=== PATIENT | female | born 1960 | race Caucasian/White ===

== ENCOUNTER → 2024-05-22 15:25 | Outpatient (REF) | payer BC, SELFPAY | LOC: RAD 15:25 | PROVIDERS: ATTENDING PHYSICIAN Nurse Practitioner Family | DX: M79.671 Pain in right foot (principal) | CPT/HCPCS: 73630 ==

== ENCOUNTER → 2024-06-15 15:16 | Outpatient (REF) | payer BC, SELFPAY | LOC: WDC 15:16 | PROVIDERS: ATTENDING PHYSICIAN Internal Medicine | DX: Z12.31 Encounter for screening mammogram for malignant neoplasm of breast (principal) | CPT/HCPCS: 77063; 77067 ==

== ENCOUNTER → 2025-06-20 08:27 | Outpatient (REF) | payer BC, SELFPAY | LOC: WDC 08:27 | PROVIDERS: ATTENDING PHYSICIAN Internal Medicine | DX: Z12.31 Encounter for screening mammogram for malignant neoplasm of breast (principal) | CPT/HCPCS: 77063; 77067 ==

== ENCOUNTER → 2025-07-31 11:34 | Outpatient (REF) | payer BC, SELFPAY | LOC: RAD 11:34 | PROVIDERS: ATTENDING PHYSICIAN Internal Medicine | DX: M79.604 Pain in right leg (principal); M79.605 Pain in left leg | CPT/HCPCS: 73552 ==

== ENCOUNTER 2025-11-16 14:08 | Inpatient (IN) | payer BC, SELFPAY ==
[2025-11-16 10:25] VITALS: BP 151/89
--- NOTE | 2025-11-16 10:31 | ED.GENMED ---
History of Present Illness
<Derrick Barnes PA-C - Last Filed: 11/16/25 12:00>
General
Chief Complaint: Musculo-Skeletal Complaint
Source: patient
Time Seen by Provider: 11/16/25 10:21
History of Present Illness
History of Present Illness:
64-year-old female with past medical history of hyperlipidemia and osteopenia presenting to the emergency department for evaluation after she was at the [employer] where she works at and accidentally slipped down a step injuring her right leg, obvious
deformity noted and inability to ambulate. At rest patient states her pain is about a 5 out of 10 discomfort but sharp and severe with any attempted movements. She notes a history of a fractured ankle to the same extremity years ago but no
complications. Denies any head strike, no anticoagulants use. Patient did receive a total of 100 mcg of f[address]anyl on the way to the hospital. No other concerns.
Past History
<Derrick Barnes PA-C - Last Filed: 11/16/25 12:00>
Past History
ED Past Medical History: Hypercholesterolemia and Other (Osteopenia )
ED Past Surgical History: Cholecystectomy and Orthopedic (Right elbow)
Social History
Tobacco: Non-smoker
Alcohol: None
Drug: None
Personal:
Living: with family
Review of Systems
<Derrick Barnes PA-C - Last Filed: 11/16/25 12:00>
Review of Systems
All Other Systems: ROS reviewed and negative except as documented in HPI and ROS
Phy Exam
<Derrick Barnes PA-C - Last Filed: 11/16/25 12:00>
Physical Exam
Physical Exam:
GENERAL: Alert , in no apparent distress but appears mildly uncomfortable at rest but with significant discomfort on any attempted movements
HEAD: Normocephalic atraumatic
EYE: conjunctiva clear
NECK: Supple
ENT: o/p clr, mmm.
CARDIAC: Regular rate and rhythm
LUNGS: Clear breath sounds bilaterally, no acute respiratory distress, no wheezes/rales/rhonchi
NEUROLOGICAL: Alert and oriented
SKIN: Warm and dry, skin intact.
MUSCULOSKELETAL: Right leg is shortened and internally rotated. She is able to range of motion foot and ankle without difficulty. Easily palpable pedal pulses. Cap refill less than 2 seconds. Sensation grossly intact to light touch
PSYCH: Normal and appropriate interaction.
Scores
<Derrick Barnes PA-C - Last Filed: 11/16/25 12:00>
Heart Failure Risk
Heart Failure Risk Score: Not Applicable
Heart Score for Chest Pain Patients
STEMI patient?: Not applicable
Withdrawal Assessment of Alcohol
Withdrawal Assessment Completed?: Not applicable
Course
<Derrick Barnes PA-C - Last Filed: 11/16/25 12:00>
Orders/Labs/Results
Orders:
Orders
11/16/25 10:27
HYDROmorphone [Dilaudid] 0.5 mg IV NOW STA
CR Femur - Right Min 2 Vw Urgent
Comment:
Reason For Exam: fall, deformity
CR Pelvis - 1 Or 2 Views Urgent
Reason For Exam: fall, deformity
11/16/25 10:30
Basic Metabolic Panel Urgent
Complete Blood Count/With Diff Urgent
PTT Urgent
Prothrombin Time Urgent
11/16/25 11:38
ORTHOPEDIC CONSULT Urgent
Consulting Provider: Darryn Vidal
Was physician already notified: Yes
11/16/25 11:47
Type+Screen Routine
11/17/25 Breakfast
NPO
Allow oral meds: Yes
Allow clear liquids: Sips of Clears
11/17/25 07:30
CeFAZolin 2 GRAM [Ancef] 2 grams in 10 ml IV PRE PROCEDURE
Povidone Iodine 10% Solution [Povidone Iodine 10%] 114 ml 0.9% Sod Chloride 3000 ml Irr [Nss Irrigation Bag] 3,000 ml IRRIG OR
Tranexamic Acid 3,000 mg 0.9% Sodium Chloride 250 ml [Nss] 250 ml IRRIG OR
Abnormal Lab Results
11/16/25
10:30
MPV 11.3 H fL
(7.4-10.4)
Absolute Monos (auto) 0.7 H 10^3/uL
(0.1-0.6)
Monocytes % 9.6 H %
(1.7-9.3)
BUN 18 H mg/dl
(7-17)
Glucose 131 H mg/dl
(70-99)
11/16/25 10:30
11/16/25 10:30
Vital Signs
Initial and Last Documented VS:
Initial Vital Signs
Temp Pulse Resp BP Pulse Ox
97.7 F 73 16 151/89 151
11/16/25 10:25 11/16/25 10:25 11/16/25 10:25 11/16/25 10:25 11/16/25 10:25
Last Documented Vital Signs
Temp Pulse Resp BP Pulse Ox
97.7 F 73 16 151/89 151
11/16/25 10:25 11/16/25 10:25 11/16/25 10:25 11/16/25 10:25 11/16/25 10:38
<Chad Landaverde, DO - Last Filed: 11/16/25 10:50>
Orders/Labs/Results
Orders:
Orders
11/16/25 10:27
HYDROmorphone [Dilaudid] 0.5 mg IV NOW STA
CR Femur - Right Min 2 Vw Urgent
Comment:
Reason For Exam: fall, deformity
CR Pelvis - 1 Or 2 Views Urgent
Reason For Exam: fall, deformity
11/16/25 10:30
Basic Metabolic Panel Urgent
Complete Blood Count/With Diff Urgent
PTT Urgent
Prothrombin Time Urgent
11/16/25 11:38
ORTHOPEDIC CONSULT Urgent
Consulting Provider: Darryn Vidal
Was physician already notified: Yes
11/16/25 11:47
Type+Screen Routine
11/17/25 Breakfast
NPO
Allow oral meds: Yes
Allow clear liquids: Sips of Clears
11/17/25 07:30
CeFAZolin 2 GRAM [Ancef] 2 grams in 10 ml IV PRE PROCEDURE
Povidone Iodine 10% Solution [Povidone Iodine 10%] 114 ml 0.9% Sod Chloride 3000 ml Irr [Nss Irrigation Bag] 3,000 ml IRRIG OR
Tranexamic Acid 3,000 mg 0.9% Sodium Chloride 250 ml [Nss] 250 ml IRRIG OR
Abnormal Lab Results
11/16/25
10:30
MPV 11.3 H fL
(7.4-10.4)
Absolute Monos (auto) 0.7 H 10^3/uL
(0.1-0.6)
Monocytes % 9.6 H %
(1.7-9.3)
BUN 18 H mg/dl
(7-17)
Glucose 131 H mg/dl
(70-99)
11/16/25 10:30
11/16/25 10:30
Vital Signs
Initial and Last Documented VS:
Initial Vital Signs
Temp Pulse Resp BP Pulse Ox
97.7 F 73 16 151/89 151
11/16/25 10:25 11/16/25 10:25 11/16/25 10:25 11/16/25 10:25 11/16/25 10:25
Last Documented Vital Signs
Temp Pulse Resp BP Pulse Ox
97.7 F 73 16 151/89 151
11/16/25 10:25 11/16/25 10:25 11/16/25 10:25 11/16/25 10:25 11/16/25 10:38
<Derrick Barnes PA-C - Last Filed: 11/16/25 12:00>
MDM/Problems Addressed
Differential Diagnosis Includes:
Femur Fracture
Hip fracture
Pelvic fracture
Dislocation
MDM/Problems Addressed:
64-year-old female presenting to the ER for evaluation following an accidental fall resulting in right hip/femur injury. Will order Dilaudid for further pain control. X-rays ordered. Will notify orthopedics as patient will need surgical repair
<Derrick Barnes PA-C - Last Filed: 11/16/25 12:00>
*Radiology
Radiology exam reviewed: preliminary read by ED provider (Comminuted midshaft right femur fracture)
*Pulse Oximetry
SaO2: 151
Oxygen Mode of Delivery: Room air
Patient hypoxic: no
*Critical Care Note
Total Time (30-74mins, 75-104mins- exclusive of procedures): Not Applicable
<Derrick Barnes PA-C - Last Filed: 11/16/25 12:00>
Patient Management
Discussion with other providers: Hospitalist and Skip Tender
Escalation/DeEscalation of care consider admission/obs:
XR with significant comminuted mid shaft femur fracture. Notified television engineer Dr. Young caceres and hospitalist team who will admit. Plan to go to OR tomorrow AM.
ED Attending Note
<Derrick Barnes PA-C - Last Filed: 11/16/25 12:00>
-
Portions of this chart may have been created with voice recognition software.� Occasional wrong word or��sound alike� substitutions may have occurred due to the inherent limitations of voice recognition software.
<Chad Landaverde DO - Last Filed: 11/16/25 10:50>
ED Attending Note
Patient seen and examined by attending physician: Yes
ED Attending Note:
I reviewed and agree with history treatment plan by Harry Barnes PA-C. My exam revealed 64-year-old female no acute distress, mid femur swelling and tenderness right leg. No other signs of trauma. Suspect midshaft femur fracture, will admit for
surgical repair.
Discharge Plan
Departure
Patient Disposition: Admit
Date of Disposition: 11/16/25
Time of Disposition: 10:54
Presentation/result/management discussed w/ accepting MD/DO: Hospitalist
Discharge Problem:
Fracture of right femur
Prescriptions:
No Action
atorvastatin 20 mg Tablet
20 mg PO QPM
Theragen Tablet
1 tab PO DAILY
calcium carbonate-vitamin D3 [Calcium + D] 600 mg-5 mcg (200 unit) Tablet
1 tab PO DAILY
Prolia 60 mg/mL Syringe
60 mg SC [id number]
Discharge Date and Time
Print Language: YAKUT
[2025-11-16] MEDS: DILAUDID 0.5 MG IV ×3 (10:34→19:46)
[2025-11-16 10:52] LABS: Hematocrit 42.2 % (37.0-47.0); Hemoglobin 14.6 g/dL (12.0-16.0); Mean Corp Hgb Conc. 34.6 g/dL (33.0-37.0); Mean Corpuscular Volume 84.6 fL (81.0-99.0); Nucleated Red Blood Cells % 0 %; Platelet Count 236 10^3/uL (130-400); Red Cell Dist. Width 12.7 % (11.5-14.5)
[2025-11-16 10:57] LABS: INR 0.99; PT 13.2 Sec (11.4-14.6)
[2025-11-16 10:58] LABS: APTT 25.8 Sec (23.4-35.0)
[2025-11-16 10:59] LABS: Blood Urea Nitrogen 18 mg/dl (7-17); Calcium 9.3 mg/dl (8.4-10.2); Carbon Dioxide 24 mmol/L (22-30); Chloride 104 mmol/L (98-107); Glucose 131 mg/dl (70-99); Potassium 4.0 mmol/L (3.5-5.1); Sodium 137 mmol/L (135-145); eGFR > 60.00
[2025-11-16 13:06] VITALS: BP 163/86
--- NOTE | 2025-11-16 13:37 | HPS.HSE ---
Family Physician
-
Family Physician: Dannielle Farias
Chief Complaint
-
Fall
History of Present Illness
64 y/o F past medical history of hyperlipidemia and osteopenia presents to ER after fall at [employer] where she works at. She reports accidentally slipping down a step, injuring her R Leg which she noted an obvious deformity and she was unable to
ambulate. She reports mid RLE thigh pain, 5/10, sharp. Movement made pain worse. No head trauma or LOC. No prior symptoms.
Medical History
Past Medical History
Past Medical History: Reports Other (hyperlipidemia and osteopenia )
Past Surgical History: Reports Other (Cholecystectomy and Orthopedic (Right elbow))
Social History
Tobacco: Non-smoker
Alcohol: None
Drug: None
Personal:
Living: With Family
Family History
Family History: Not pertinent
Allergies / Home Medications
Allergies reflects when Allergies were last updated in [employer].
Home Medications with original date entered in [employer]
Allergy/Medication List:
Allergies
Allergy/AdvReac Type Severity Reaction Status Date / Time
alendronate sodium Allergy Itching, Verified 11/16/25 10:29
upset
stomach
prochlorperazine maleate Allergy muscle Verified 11/16/25 10:29
(From Compazine) spasms of
the jaw
shellfish derived Allergy itching Verified 11/16/25 10:29
lips,
tingling
sulfamethoxazole (From Allergy hives, Verified 11/16/25 10:29
Bactrim DS) puffiness
of the face
trimethoprim (From Bactrim Allergy hives, Verified 11/16/25 10:29
DS) puffiness
of the face
Home Medications
atorvastatin 20 mg tablet 20 mg PO QPM 11/16/25
calcium 600 mg (as carbonate)-vitamin D3 5 mcg (200 unit) tablet 1 tab PO DAILY 11/16/25
denosumab 60 mg/mL subcutaneous syringe (Prolia) 60 mg SC [id number] 11/16/25
therapeutic multivitamin 1 tab PO DAILY 11/16/25
Review of Systems
-
A 12 point ROS was completed and negative except as noted: Yes
Physical Exam
Vital Signs
Vital Signs
Temp Pulse Resp BP Pulse Ox
97.7 F 78 16 163/86 99
11/16/25 10:25 11/16/25 13:06 11/16/25 13:06 11/16/25 13:06 11/16/25 13:06
Physical Exam
General: No Apparent Distress
HEENT: NormoCephalic and Anicteric
Respiratory: Clear; No Wheezes or Rales
Cardiac: S1/S2 and Regular Rhythm
GI: Soft and Non Tender
Musculoskeletal: Other (Right leg is shortened and internally rotated. )
Neuro: AO x 3
Hematologic/Lymphatic: No Lymphadenopathy
Psych: Calm
Laboratory Results
-
11/16/25 10:30
11/16/25 10:30
Laboratory Results
PT 13.2 Sec (11.4-14.6) 11/16/25 10:30
INR 0.99 11/16/25 10:30
APTT 25.8 Sec (23.4-35.0) 11/16/25 10:30
Data Reviewed
-
Diagnostic Radiology: Report Reviewed by me
Lab Data: Labs Reviewed by me
Impression/Plan
-
Assessment:
Mechanical fall
- X:ray showing comminuted mid shaft femur fracture. Likely exacerbated by baseline osteoporosis
- pain control
- Ortho consulted; operative intervention tomorrow
- post-op PT/OT
- pre-op EKG, patient >4 METS, no chest pain or cardiac symptoms.
HLD - statin
DVT ppx: SCDs
Code: Full
--- NOTE | 2025-11-16 15:43 | CM ---
Chart reviewed and spoke with patient at ED bedside
Lives with in 2 with 3 [place] 1st floor set up
Works as a hebrew teacher
no DME independent with ADLs
PCP Dannielle Farias
[facility]
no hx of VN nor SNF
DCP is to go home with services vs outpt PT
Pt is scheduled for OR hip surgery 8 am
Does NOT want to go to inpt rehab
works from home
Son in [place]
3 SILs all local and 1 good friend about 3 miles away
Pt feels that she would have lots of help at home
CM will continue to follow up for any dcp needs
[2025-11-16 16:12] VITALS: BP 143/69
[2025-11-16 18:41] VITALS: BP 179/99
[2025-11-16] MEDS: FLUSH (NSS) 2 FLUSH IV (19:46)
--- NOTE | 2025-11-16 20:10 | PTCARENOTE ---
Pt arrived to floor from ED at aprox 1830. Pt slid over to bed from stretcher with assist of 4 people. Pt noted to have traction device on right leg. TT sent Dr Vidal who said to remove the traction. Nightshift FLATWARE MAKER notified and at bedside to
assess.
[2025-11-16 23:15] VITALS: BP 127/85
[2025-11-16] MEDS: TYLENOL 650 MG PO (23:40)
[2025-11-16] MEDS: LIPITOR 20 MG PO (23:44)
[2025-11-17] VITALS (13 sets, daily range): BP systolic 88–156; BP diastolic 43–85; PULSE 95; O2SAT 91
[2025-11-17] MEDS: DILAUDID 0.5 MG IV ×2 (00:18→06:21)
--- NOTE | 2025-11-17 02:47 | CON.ORTHO ---
Consultation
-
Date/Time Consultation Requested: Nov 22
Date/Time Consultation Performed: Nov 22
Requesting Provider: RALF Barnes
Performing Provider: Bull Vidal
Reason for Consultation: RIGHT femur fracture
Consultation - Orthopedics
History
Late entry from Oct due to [employer]/account issues
History of Present Illness:
64 y/o female with PMH of hyperlipidemia and osteoporosis (treated with Prolia) who presented to the ED for evaluation after she was at the [employer] (where she works) and accidentally slipped down a step injuring her right leg, obvious deformity
noted, and inability to ambulate. At rest patient states her pain is about a 5 out of 10 discomfort but sharp and severe with any attempted movements. She notes a history of a fractured ankle to the same extremity years ago but no complications.
Also history of right shoulder an elbow fractures (ebow requiring ORIF). Denies any head strike, LOC, or prodrome. No thinners. Xrays reveal a mid shaft right femur fracture, therefore we were consulted for the consideration of surgical fixation.
Past Medical History:
Hypercholesterolemia and Osteoporosis
Past Surgical History:
Cholecystectomy
Right elbow ORIF
Social History:
Tobacco: Non-smoker
Alcohol: None
Drug: None
Personal:
Living: with family
Family History:
Not pertinent
ROS:
12 point negative except for those mentioned in the HPI
Allergies / Home Medications
Allergy/AdvReac Type Severity Reaction Status Date / Time
alendronate sodium Allergy Itching, Verified 11/16/25 10:29
upset
stomach
prochlorperazine maleate Allergy muscle Verified 11/16/25 10:29
(From Compazine) spasms of
the jaw
shellfish derived Allergy itching Verified 11/16/25 10:29
lips,
tingling
sulfamethoxazole (From Allergy hives, Verified 11/16/25 10:29
Bactrim DS) puffiness
of the face
trimethoprim (From Bactrim Allergy hives, Verified 11/16/25 10:29
DS) puffiness
of the face
�Medication �Instructions �Recorded
atorvastatin 20 mg tablet 20 mg PO QPM 11/16/25
calcium 600 mg (as 1 tab PO DAILY 11/16/25
carbonate)-vitamin D3 5 mcg (200
unit) tablet
denosumab 60 mg/mL subcutaneous 60 mg SC [id number] 11/16/25
syringe (Prolia)
therapeutic multivitamin 1 tab PO DAILY 11/16/25
Vital Signs / Lab Results
Temp Pulse Resp BP Pulse Ox
99.2 F 88 17 127/85 96
11/16/25 23:15 11/16/25 23:15 11/16/25 23:15 11/16/25 23:15 11/16/25 23:15
Assessment / Plan
PE: Low grade 99.2. ED11. RLE splinted. Skin intact. Edematous. Painful generally over the mid thigh. Deferred hip and knee ROM due to known fracture. Calf soft, nontender. DNVI RLE
Hgb 14.6
Xrays: Displaced, comminuted, angulated, mid shaft RIGHT femur fracture (likely fragility related)
Impression: NEYDA
Plan: At length discussion with the patient bedside yields her understanding to the nature of her right femur fracture. This fracture was very likely exacerbated by her osteoporosis. All nonoperative and operative management were discussed,
including the RBAs of each approach to management. after discussing all the risks of surgery she has accepted and wishes to proceed. Plan for IM rodding of her RIGHT femur with long gamma nail is tentatively scheduled for 0800 on Wednesday (today)
under the direction of Dr. Vidal. OR aware. postop and rehab specifics discussed and will appreciate CM assistance with disposition. Surgical and blood consents have been signed by the patient and left of the OR desk. Operative site marked as
the right thigh. patient has been made NPO pMN. ABX and irrigation products OCTOR. T&S complete. Appreciate attending hospitalist, Dr. Carver. She does appear optimized for surgery. Patient to remain at bedrest. Pain control. Again, plan for surgical
fixation of her RIGHT midshaft femur fracture is tentatively scheduled for Wednesday AM (today). Will follow
[2025-11-17] MEDS: FLUSH (NSS) 2 FLUSH IV (06:21)
[2025-11-17 07:06] LABS: Hematocrit 38.4 % (37.0-47.0); Hemoglobin 13.1 g/dL (12.0-16.0); Mean Corp Hgb Conc. 34.1 g/dL (33.0-37.0); Mean Corpuscular Volume 85.1 fL (81.0-99.0); Platelet Count 248 10^3/uL (130-400); Red Cell Dist. Width 12.7 % (11.5-14.5)
[2025-11-17 07:41] LABS: Blood Urea Nitrogen 14 mg/dl (7-17); Calcium 9.3 mg/dl (8.4-10.2); Carbon Dioxide 28 mmol/L (22-30); Chloride 103 mmol/L (98-107); Estimated Creatinine Clearance 59 ml/min; Glucose 122 mg/dl (70-99); Potassium 4.0 mmol/L (3.5-5.1); Sodium 135 mmol/L (135-145); eGFR > 60.00
[2025-11-17] MEDS: ROXICODONE 5 MG PO (10:43)
--- NOTE | 2025-11-17 10:43 | CM ---
Addendum entered by Comfort Sánchez 11/17/25 15:45:
Home Health agency options identified; preference is [facility]; referral sent via [facility]
Addendum entered by Comfort Sánchez 11/17/25 15:18:
PT recommends home health/PT when stable for discharge
Original Note:
PT/OT pending
Case Management will continue to Follow and support disposition needs when identified
--- NOTE | 2025-11-17 13:37 | W.PN.HOSP.TC ---
Today's Communication/Plan
-
post-op PT/OT and pain control
Assessment / Plan
Assessment / Plan
Assessment:
Mechanical fall
- X:ray showing comminuted mid shaft femur fracture. Likely exacerbated by baseline osteoporosis
- s/p ORIF/Gamma Nail 11/17
- pain control
- patient hoping for home/VN setup pending post-op PT/OT evals
- follow ortho recs
HLD - statin
DVT ppx: SCDs
Code: Full
Anticipated Discharge: 24 - 48 hours
Subjective/Interval History
-
Date of Service: November 17, 2025
seen after surgery, doing well, pain controlled, in good spirits
Objective Data
-
Labs:
Laboratory Results
11/17/25
06:29
WBC 9.0
Hgb 13.1
Hct 38.4
Plt Count 248
Sodium 135
Potassium 4.0
Chloride 103
Carbon Dioxide 28
BUN 14
Creatinine 0.8
Glucose 122 H
Calcium 9.3
Vital Signs:
Vital Signs
Temp Pulse Resp BP Pulse Ox
98.8 F 84 16 122/68 93
11/17/25 12:00 11/17/25 12:00 11/17/25 12:00 11/17/25 12:00 11/17/25 12:00
I&O
11/16/25 11/17/25 11/18/25
06:59 06:59 06:59
Intake Total 240 / 240 100 / 100
Balance 240 / 240 100 / 100
Physical Exam
-
General: No Apparent Distress
HEENT: Normocephalic and Atraumatic
Respiratory: Negative Wheezes
Cardiac: Regular Rhythm
GI: Soft
Musculoskeletal: No Edema
Neuro: AO x 3
Psych: Calm
Data Reviewed
-
Total Time Spent with Patient (in minutes): 42
Labs: Labs Reviewed by me
[2025-11-17] MEDS: TYLENOL 650 MG PO ×2 (15:30→21:55)
[2025-11-17] MEDS: ASPIRIN 325 MG PO (17:41)
[2025-11-17] MEDS: LIPITOR 20 MG PO (17:41)
--- NOTE | 2025-11-17 18:02 | W.PN.UPDATE ---
Update Note
Progress Note Update
for whatever reason patient's intraoperative fluoroscopy images were not saved to the PACS thus I will order femur xray for future comparision on followup.
[2025-11-17] MEDS: ANCEF 5 IV (20:45)
[2025-11-18 02:58] VITALS: BP 124/67
[2025-11-18] MEDS: ANCEF 5 IV (03:27)
[2025-11-18] MEDS: FLUSH (NSS) 1 FLUSH IV (03:27)
[2025-11-18] MEDS: TYLENOL 650 MG PO ×4 (05:59→20:47)
[2025-11-18 06:58] LABS: Blood Urea Nitrogen 16 mg/dl (7-17); Calcium 8.5 mg/dl (8.4-10.2); Carbon Dioxide 26 mmol/L (22-30); Chloride 103 mmol/L (98-107); Estimated Creatinine Clearance 59 ml/min; Glucose 118 mg/dl (70-99); Hematocrit 35.5 % (37.0-47.0); Hemoglobin 11.9 g/dL (12.0-16.0); Mean Corp Hgb Conc. 33.5 g/dL (33.0-37.0); Mean Corpuscular Volume 86.2 fL (81.0-99.0); Platelet Count 239 10^3/uL (130-400); Potassium 4.3 mmol/L (3.5-5.1); Red Cell Dist. Width 13.0 % (11.5-14.5); Sodium 135 mmol/L (135-145); eGFR > 60.00
[2025-11-18 07:25] VITALS: BP 110/54
--- NOTE | 2025-11-18 08:27 | W.PN.ORTHO ---
Today's Communication / Plan
-
64F POD #1 Right Femur CMN 11/17/[address] Vidal.
- WBAT RLE with use of walker for ambulatory assistance
- Hgb this AM 11.9; continue to monitor
- ASA 325mg once daily x 4 weeks for DVT prophylaxis
- PT/OT/Discharge planning
- Pain control per primary team. Ice therapy and elevation for edema control
- Orthopedic surgery will continue to follow
Assessment
.
Distal Motor Intact: Yes
Dressing:
Surgical dressings intact. Scant contained bloody drainage noted about the Primaseal (lateral knee); appears stable.
Calf is soft and nontender.
Able to dorsiflex and plantarflex right ankle. Able to wiggle toes.
Capillary refill is less than 2 seconds. Sensation intact to light touch distally.
Assessment:
POD #1 Right Femur CMN 11/17/[address] Vidal.
Plan
.
Surgery / Date: 11/17/[address] Right [address]N [address] Dr[address] Viadl
DVT Prophylaxis: Aspirin
Activity:
Out of bed.
PT/OT.
WBAT RLE w/ use of walker for assistance.
Discharge Plan: Other
Discharge Information:
Appreciate CM.
Subjective
.
.:
Patient resting comfortably.
Vital Signs and Labs
.
Vital Signs and Labs:
Lab Results
11/18/25 06:06
11/18/25 06:06
Temp Pulse Resp BP Pulse Ox
98.4 F 75 16 110/54 97
11/18/25 07:25 11/18/25 07:25 11/18/25 07:25 11/18/25 07:25 11/18/25 07:25
PT 13.2 Sec (11.4-14.6) 11/16/25 10:30
INR 0.99 11/16/25 10:30
--- NOTE | 2025-11-18 08:54 | CM ---
Addendum entered by Comfort Sánchez 11/18/25 13:00:
Discharge cancelled for today
Original Note:
Plan: discharge to home today w/ [facility] home health services; will provide transport
[2025-11-18] MEDS: ASPIRIN 325 MG PO (09:04)
--- NOTE | 2025-11-18 10:12 | W.PN.HOSP.TC ---
Today's Communication/Plan
-
dc home/VN If PT/OT clears patient
Assessment / Plan
Assessment / Plan
Assessment:
Mechanical fall
- X:ray showing comminuted mid shaft femur fracture. Likely exacerbated by baseline osteoporosis
- s/p ORIF/Gamma Nail 11/17
- pain control
- PT/OT - home VN ordered
- ASA for DVT ppx
- Ortho f/u in 2 weeks
HLD - statin
DVT ppx: SCDs
Code: Full
More than 30 minutes spent in discharge including
Final examination of the patient
Summarizing hospital stay
Instructions for continuing care to all relevant caregivers
Preparation of discharge records, prescriptions, and referral forms
Total time spent (in minutes):41
Anticipated Discharge: Today
Subjective/Interval History
-
Date of Service: November 18, 2025
resting comfortably, no complaints at present
Objective Data
-
Labs:
Laboratory Results
11/18/25
06:06
WBC 12.3 H
Hgb 11.9 L
Hct 35.5 L
Plt Count 239
Sodium 135
Potassium 4.3
Chloride 103
Carbon Dioxide 26
BUN 16
Creatinine 0.8
Glucose 118 H
Calcium 8.5
Vital Signs:
Vital Signs
Temp Pulse Resp BP Pulse Ox
98.4 F 75 16 110/54 97
11/18/25 07:25 11/18/25 07:25 11/18/25 07:25 11/18/25 07:25 11/18/25 07:25
I&O
11/17/25 11/18/25 11/19/25
06:59 06:59 06:59
Intake Total 240 / 240 1060 / 1060
Balance 240 / 240 1060 / 1060
Physical Exam
-
General: No Apparent Distress
HEENT: Normocephalic and Atraumatic
Respiratory: Negative Wheezes
Cardiac: Regular Rhythm and S1/S2
GI: Soft
Genito-urinary: No Costovertebral Tender
Neuro: AO x 3
Psych: Calm
Data Reviewed
-
Total Time Spent with Patient (in minutes): 41
Labs: Labs Reviewed by me
[2025-11-18 10:58] VITALS: BP 113/60; PULSE 99; O2SAT 98
[2025-11-18 11:43] VITALS: BP 113/60; PULSE 100; O2SAT 98
--- NOTE | 2025-11-18 13:16 | W.PN.UPDATE ---
Update Note
Progress Note Update
PT/OT requesting 1 additional day as patient not yet independent with ambulation. DC paperwork complete and scripts send to pharmacy. d/w Family for Wednesday discharge
[2025-11-18 15:15] VITALS: BP 109/70
[2025-11-18] MEDS: LIPITOR 20 MG PO (18:30)
[2025-11-18] MEDS: ROXICODONE 5 MG PO (22:12)
[2025-11-18 23:09] VITALS: BP 102/55
[2025-11-19] MEDS: TYLENOL 650 MG PO (04:39)
--- NOTE | 2025-11-19 05:47 | W.PN.ORTHO ---
Today's Communication / Plan
-
Appreciate the primary team, continue Tx
Dispo likely SNF/rehab, appreciate CM assistance
PT/OT
WBAT RLE with device
Hgb on Oct 11.9; continue to trend
ASA 325mg once daily x 4 weeks for DVT prophylaxis
Pain control per primary team. Ice/elevation for edema control
Dressings to remain 7-10 days
Outpatient Ortho follow-up 4 weeks for rads and clinical exam, sooner if necessary
Ortho to sign off for now. Please reengage with any pertinent questions as indicated
Assessment
.
Dressing:
Clean, dry and intact.
Plan
.
Surgery / Date: 11/17/2025 Right Femur CMN with Dr. Vidal
Activity:
Out of bed.
PT/OT
Subjective
.
.:
Patient resting comfortably.
Vital Signs and Labs
.
Vital Signs and Labs:
Lab Results
11/18/25 06:06
11/18/25 06:06
Temp Pulse Resp BP Pulse Ox
98.5 F 71 17 102/55 99
11/18/25 23:09 11/18/25 23:09 11/18/25 23:09 11/18/25 23:09 11/18/25 23:09
PT 13.2 Sec (11.4-14.6) 11/16/25 10:30
INR 0.99 11/16/25 10:30
[2025-11-19 07:25] VITALS: BP 133/79
[2025-11-19] MEDS: ASPIRIN 325 MG PO (08:21)
--- NOTE | 2025-11-19 09:29 | W.PN.HOSP.TC ---
Today's Communication/Plan
-
dc
Assessment / Plan
Assessment / Plan
Assessment:
Mechanical fall
- X:ray showing comminuted mid shaft femur fracture. Likely exacerbated by baseline osteoporosis
- s/p ORIF/Gamma Nail 11/17
- pain control with Tylenol primarily
- PT/OT - home VN ordered
- ASA for DVT ppx
- Ortho f/u in 2 weeks
Discussed patient pain management, she wants prescription for oxycodone, counseled about safe use
# Mild acute blood loss anemia secondary to fracture. No hypotension. No tachycardia
# Leukocytosis, reactive. No fever
HLD - statin
DVT ppx: SCDs
Code: Full
Total discharge time spent to see the patient, examine the patient, review data and lab results, discuss discharge plan with patient, nursing staff around 65 minutes
Anticipated Discharge: Today
Subjective/Interval History
-
Date of Service: November 19, 2025
She feels ready to go home.
She wants pain medication
Objective Data
-
Vital Signs:
Vital Signs
Temp Pulse Resp BP Pulse Ox
97.8 F 77 16 133/79 97
11/19/25 07:25 11/19/25 07:25 11/19/25 07:25 11/19/25 07:25 11/19/25 07:25
I&O
11/18/25 11/19/25 11/20/25
06:59 06:59 06:59
Intake Total 1060 / 1060 1919
Balance 1060 / 1060 1919
[2025-11-19 09:50] VITALS: BP 121/61; PULSE 97
--- NOTE | 2025-11-19 10:16 | CM ---
Pt is discharged today. VN choices provided and pt chose [facility].;Liaison made aware. Pt will travel home with her . She has a walker at home and arranged for assistance with steps at home.
[2025-11-19 10:23] VITALS: BP 121/61; PULSE 100; O2SAT 97
--- NOTE | 2025-11-19 12:05 | VNURNOTE ---
Home Health Liaison spoke with pt to discuss [facility] nurse/therapy, visits, schedule and homebound status. Patient is agreeable and understands that visits at home will be 2-3 x per week to assess and teach medical management.
Patient is aware that [facility] will contact them for start of care within a week after discharge from .
[facility] referral accepted in [facility].
[2025-11-19 13:30] VITALS: BP 122/79
--- NOTE | 2025-11-19 13:40 | W.DCSUMMARY ---
Discharge Summary
Discharge Data
Date of Admission: 11/16/25
Date of Discharge: 11/19/25
-
Pending Results: No
Hospital Course
64 years old female presented to the ED for evaluation after a mechanical fall. She was at the [facility] and accidentally slipped down a step injuring her right leg, obvious deformity noted, and inability to ambulate. Denied any head strike, LOC, or
prodrome. Not on blood thinners. Xrays revealed a mid shaft right femur fracture. She was diagnosed with displaced, comminuted, angulated, mid shaft RIGHT femur fracture. Patient was taken to the OR for surgical repair with Dr. Vidal. No
complications reported. Patient was evaluated by physical therapy postoperatively. Recommendation to discharge home with home care services. Patient was placed on 325 mg of aspirin for DVT prophylaxis. Patient was counseled regarding pain
control. Patient remained hemodynamically stable was discharged home in a stable condition.
Discharge Plan
-
Patient Disposition: Home with Home Care
Discharge Diagnosis/Procedures: mid shaft femur fracture s/p ORIF 11/17
Take 1000 mg of Tylenol 2-3 times a day for at least 3 days to help with pain control. Use oxycodone as 5 mg or 2.5 mg as needed, mostly at night, potential side effects of oxycodone include dizziness/ drowsiness, constipation.
Avoid driving or operating machinery if taking oxycodone.
- Use [id number] Dulcolax 10 mg once a day or twice a day for constipation
Condition: Fair
Diet: Regular
Activity: As tolerated
Additional Activity: WBAT with walker
Bathing Restrictions: None
Other Services: VN, PT and OT
Referrals:
Dannielle Farias MD [Family Provider, Internal Medicine]
Darryn Vidal MD [Active, Orthopedics] - in two to three weeks
Prescriptions:
New
aspirin 325 mg Tablet
325 mg PO DAILY Qty: 30 0RF
oxycodone 5 mg Tablet
5 mg PO Q6HPRN PRN (Reason: moderate pain) Qty: 20 0RF
acetaminophen [Tylenol Extra Strength] 500 mg tablet
1,000 mg PO Q6H PRN (Reason: fever or pain) Qty: 10 0RF
Continued
atorvastatin 20 mg Tablet
20 mg PO QPM
therapeutic multivitamin Tablet
1 tab PO DAILY
calcium carbonate-vitamin D3 600 mg-5 mcg (200 unit) Tablet
1 tab PO DAILY
Prolia 60 mg/mL Syringe
60 mg SC [id number]
Discharge Orders:
Discharge Patient (As Directed); Ordered 11/19/25
Ordered By: Laurence Geiger
Discharge Date and Time
Print Language: DANISH
== END 2025-11-19 14:01 | disposition home health service (06) | DRG 481 ==
LOC: 2 SOUTH 14:08
PROVIDERS: Physician Assistant Medical; ADMITTING PHYSICIAN Internal Medicine; ATTENDING PHYSICIAN Internal Medicine; CONSULT PHYSICIAN Orthopaedic Surgery; EMERGENCY PHYSICIAN Emergency Medicine; FAMILY PHYSICIAN Internal Medicine
PROC: 0QS804Z Reposition Right Femoral Shaft with Internal Fixation Device, Open Approach (ICD-10-PCS; 2025-11-17)
DX: M80.051A Age-related osteoporosis with current pathological fracture, right femur, initial encounter for fracture (principal); D62 Acute posthemorrhagic anemia; E78.00 Pure hypercholesterolemia, unspecified; E78.49 Other hyperlipidemia
CPT/HCPCS: 72170; 73080; 73552; 76000; 80048; 85025; 85027; 85610; 85730; 86850; 86900; 86901; 93005; 96374; 96375; 96376; 97116; 97163; 97166; 97530; 97535; 99284; C1713; C1769